=== PATIENT | male | born 1955 | race Hispanic/Latino ===

== ENCOUNTER 2021-03-04 07:17 | Day surgery (SDC) | payer BC ==
[2021-03-04] MEDS ORDERED: ASPIRIN EC 325 MG TAB PO SCH (08:00)
[2021-03-04] MEDS ORDERED: SODIUM CHLORIDE 0.9% 500 ML 500 ML IV SCH (08:00)
[2021-03-04 08:35] LABS: Basophils # (Auto) 0.1 K/mm3 (0.0-0.1); Basophils % (Auto) 0.7 % (0.0-1.8); Eosinophils # (Auto) 0.2 K/mm3 (0.0-0.4); Eosinophils % (Auto) 1.8 % (0.0-4.3); Hemoglobin 15.6 gm/dl (11.8-15.2); Lymphocytes # (Auto) 2.5 K/mm3 (1.2-5.4); Lymphocytes % (Auto) 24.6 % (13.4-35.0); Mean Corpuscular HGB Conc 34 % (32-34); Mean Corpuscular Volume 97 fl (84-94); Monocytes # (Auto) 0.9 K/mm3 (0.0-0.8); Monocytes % (Auto) 9.1 % (0.0-7.3); Platelet Count 262 K/mm3 (140-440); Red Blood Count 4.76 M/mm3 (3.65-5.03); Red Cell Distribution Width 13.6 % (13.2-15.2)
[2021-03-04 08:45] LABS: INR 0.88 (0.87-1.13)
[2021-03-04 08:46] LABS: Blood Urea Nitrogen 10 mg/dL (9-20); Calcium 9.3 mg/dL (8.4-10.2); Hemolysis Index 5; Partial Thromboplastin Time 37.7 Sec. (24.2-36.6)
[2021-03-04 08:50] LABS: BUN/Creatinine Ratio 14
[2021-03-04] MEDS ORDERED: VERAPAMIL 5 MG/2 ML INJ ONE (10:37)
[2021-03-04] MEDS ORDERED: MIDAZOLAM 2 MG/2 ML INJ ONE (10:37)
[2021-03-04] MEDS ORDERED: fentaNYL 100 MCG/2 ML INJ ONE (10:37)
[2021-03-04] MEDS ORDERED: LIDOCAINE (2%) 20 MG/1 ML VIAL 20 ML MDV INFILTRATI ONE (10:37)
[2021-03-04] MEDS ORDERED: HEPARIN 10,000 UNITS/10 ML VIAL ONE (10:37)
[2021-03-04] MEDS ORDERED: HEPARIN/NS 5000 UNIT/500ML 1,000 ML IR ONE (10:37)
--- NOTE | 2021-03-04 12:17 | Electrocardiograph Report ---
[facility] Test Date: 2021-03-04 Test Time: 07:49:47 Pat Name: JACQUES SOTO Department: Room: Gender: M [employer]: GERRY : 1955 Requested By: BORA PEREZ Order Number: [id number] Reading MD: Bora Perez Measurements Intervals [place] Rate: 63 P: 30 VT: 204 QRS: -62 QRSD: 104 T: 31 QT: 421 QTc: 431 Interpretive Statements Sinus rhythm Atrial premature complex Left anterior fascicular block Anterior infarct, old No previous ECG available for comparison Electronically Signed On 03-04-2021 12:17:10 EST by Bora Perez
--- NOTE | 2021-03-04 12:34 | Cardiac Catherization Report ---
DATE OF SERVICE: 03/04/2021 INDICATIONS: The patient is a 65-year-old white gentleman with complaints of shortness of breath and underlying essential hypertension, diabetes mellitus and chronic smoking. He is noted to have exertional shortness of breath. Pharmacological stress testing showed fixed defects, but no significant ischemia noted. Echocardiogram showed normal left ventricular systolic function of 55-60%. However, because of persistent shortness of breath with exertion, he was scheduled for cardiac catheterization for definitive diagnosis and treatment. The patient is aware of the procedure, potential complications, and alternatives of therapy. The patient is willing to proceed with coronary angiography. The patient is aware of the procedure, potential complications, and alternatives of therapy available. DESCRIPTION OF PROCEDURE: The patient was brought to the catheterization laboratory in a fasting condition. It prepared in standard fashion, was valuated for moderate sedation and was felt to be an appropriate candidate for moderate sedation. Received IV Versed and fentanyl. Subsequently, local anesthesia was given in the right wrist area followed by accessing the right radial artery with 21-gauge arterial puncture needle. A 5-Slovak slender sheath was introduced. A 6-Slovak multipurpose catheter was used to obtain the angiograms of the left ventricle done in VILLA projection using hand injection followed by angiograms of the right coronary artery in multiple views. Subsequently, JL3.5 diagnostic catheter was used for obtaining the angiograms of the left coronary artery in multiple views. At the end of the procedure, catheter and sheath were removed. The patient tolerated the procedure well. The patient was monitored throughout the procedure with pulse oximetry, and EKG monitoring and hemodynamic monitoring. The patient's moderate sedation monitoring started at 10:46 a.m. and ended at 10:56 a.m. At the end of the procedure, the patient is breathing normally, communicating normally with no focal deficits. The patient was transferred to the room in stable condition. Hemostasis will be achieved with application of radial band. Following findings were noted. Aortic pressure 148/76. Left ventricular pressure 147/29. No gradient across the aortic valve. Estimated ejection fraction 55%. 1. Left ventriculogram done in VILLA projection showed normal sized left ventricle with normal contractility. Left ventricular end-diastolic and systolic volumes are normal. Estimated ejection fraction 55-60%. Mitral regurgitation could not be evaluated because of limited amount of dye injected. 2. Right coronary artery arises normally from right coronary cusp. Angiographically showed minimal disease. 3. Left coronary artery arises normally from left coronary cusp. The left main is short, without any significant disease. LAD showed smooth 20% concentric lesion in the proximal part. Rest of the LAD and its branches showed minimal disease. 4. Left circumflex artery showed minimal disease. At this time, the patient has normal left ventricular systolic function with mildly elevated end-diastolic pressure. Only minimal to mild coronary disease noted. Considering this would continue risk factor modification. His shortness of breath be most likely related to diastolic dysfunction and may be underlying lung disease. Continue medical therapy. No untoward complications were noted. The patient tolerated the procedure well. The patient was transferred to the room in stable condition. TID: [id number] RECEIPT: [id number] YARELI/CAM WOO
--- NOTE | 2021-03-04 12:40 | Short Stay Summary ---
Short Stay Documentation Date of service: 03/04/21 - History H&P: obtained from office - Allergies and Medications Current Medications: Allergies No Known Allergies Allergy (Unverified 03/04/21 07:59) Home Medications Medication Instructions Recorded Confirmed Last Taken Type Albuterol Mdi (or & Nicu Only) 2 puff IH QID PRN 03/04/21 03/04/21 03/03/21 History [ProAir HFA Inhaler] Ergocalciferol [Vitamin D2] 1 cap PO QWEEK 03/04/21 03/04/21 03/03/21 History Lisinopril/Hydrochlorothiazide 1 each PO DAILY 03/04/21 03/04/21 03/03/21 History [Zestoretic 10-12.5 mg Tablet] Metformin HCl [Metformin HCl ER] 500 mg PO DAILY 03/04/21 03/04/21 03/03/21 History Active Medications Aspirin (Aspirin Ec 325 Mg Tab) 325 mg PO ONCE@0800 BRANDEE Stop: 03/04/21 17:00 Last Admin: 03/04/21 10:11 Dose: 325 mg Documented by: Sodium Chloride (Nacl 0.9% 500 Ml) 500 mls @ 50 mls/hr IV DIRECT BRANDEE Stop: 03/04/21 17:59 Last Admin: 03/04/21 10:49 Dose: 125 mls Documented by: - Physical exam Integumentary: other (Right radial cath site no bleeding or hematoma noted. Distal PMS intact) - Brief post op/procedure progress note Date of procedure: 03/04/21 Pre-op diagnosis: Exertional dyspnea Post-op diagnosis: other (Mild coronary artery disease) Procedure: [facility] cath report Anesthesia: local Estimated blood loss: none Condition: stable - Disposition Condition at discharge: Good Disposition: 01 HOME / SELF CARE / HOMELESS - Discharge Diagnoses (1) Coronary artery disease Status: Acute Short Stay Discharge Plan Activity: advance as tolerated Diet: low fat, low cholesterol, low salt Wound: open to air, keep clean and dry, per your surgeon's advice Follow up with: DENISE JACKSON MD [Primary Care Provider] - 7 Days LAYLA PEREZ MD [Staff Physician] - 7 Days (Patient should follow up with Dr Perez, [facility] on 03/17/2021 at 2:15 PM at our [facility] office. #[id number])
[2021-03-04 14:45] VITALS: BP 147/83
== END 2021-03-04 07:18 | disposition home or self-care (01) ==
LOC: CATHLABREC 07:17
PROVIDERS: ATTEND Internal Medicine
DX: R06.02 Shortness of breath (principal); I25.10 Atherosclerotic heart disease of native coronary artery without angina pectoris; I10 Essential (primary) hypertension; E11.9 Type 2 diabetes mellitus without complications; E66.8 Other obesity; I73.9 Peripheral vascular disease, unspecified; G47.30 Sleep apnea, unspecified; F17.210 Nicotine dependence, cigarettes, uncomplicated; Z79.899 Other long term (current) drug therapy; Z98.890 Other specified postprocedural states; Z82.49 Family history of ischemic heart disease and other diseases of the circulatory system
CPT/HCPCS: 36415; 80048; 85025; 85610; 85730; 93005; 93458; 99156; C1894; J1644; J2250; J3010; J3490; J7040; Q9967